=== PATIENT | female | born 1960 | race Caucasian/White ===

== ENCOUNTER 2017-11-19 08:03 | Day surgery (SDC) | payer BC ==
[~2017-11-19] VITALS: Ht 170.2 cm; Wt 87.0 kg
[~2017-11-19 08:03] MED LIST: DECADRON4 M1 PO; MULTIVITAMIN1 EAC2 PO; PREVACID30 MG PO; SYNTHROID25 MCG PO; VITAMIN D31000 UNI2 PO
[2017-11-19 08:33] VITALS: BP 128/70
[2017-11-19 14:53] VITALS: BP 131/76
[2017-11-19 19:38] VITALS: BP 113/65
[2017-11-19 23:51] VITALS: BP 143/69
[2017-11-20 04:01] VITALS: BP 127/72
[2017-11-20 07:48] VITALS: BP 125/65
[2017-11-20 11:35] VITALS: BP 108/58
== END 2017-11-20 14:03 | disposition home or self-care (01) ==
LOC: SDC 08:03 → 2SOUTH 13:54 → 2EAST 13:54 → ENRESERV 13:55 → 2EAST 14:24 → SDC 15:44 → 2EAST 11-20 14:03
DX: M50.021 Cervical disc disorder at C4-C5 level with myelopathy (principal); M48.02 Spinal stenosis, cervical region; R26.0 Ataxic gait; G95.89 Other specified diseases of spinal cord; G60.9 Hereditary and idiopathic neuropathy, unspecified; K21.9 Gastro-esophageal reflux disease without esophagitis; E03.9 Hypothyroidism, unspecified; Z87.891 Personal history of nicotine dependence
CPT/HCPCS: 72020; 76000; 93005; C1713; C1821; G0378; J0131; J0690; J1100; J2250; J2405; J3010; J3480